=== PATIENT | female | born 1970 | race Caucasian/White ===

== ENCOUNTER 2017-12-26 07:38 | Emergency (ER) | payer OTHER ==
[~2017-12-26] VITALS: Ht 149.9 cm; Wt 90.0 kg
[~2017-12-26 07:38] MED LIST: CARI350T PO
[2017-12-26] MEDS ORDERED: SIMV40TA3 PO (08:08)
[2017-12-26] MEDS ORDERED: DIABETES (08:08)
[2017-12-26] MEDS ORDERED: DEXAMETHASONE 4 MG/ML, 1ML ONE (08:48)
[2017-12-26] MEDS ORDERED: SUMATRIPTAN 6MG/0.5ML SQ ONE ×2 (08:48→09:00)
[2017-12-26] MEDS ORDERED: KETOROLAC 30 MG/1 ML ONE (08:49)
[2017-12-26] MEDS ORDERED: METOCLOPRAMIDE 5 MG/ML, 2ML ONE (08:49)
[2017-12-26] MEDS ORDERED: DIPHENHYDRAMINE 50 MG/ML, 1ML ONE (08:49)
[2017-12-26] MEDS ORDERED: DIPHENHYDRAMINE 50 MG/ML, 1ML IVPush ONE (09:00)
[2017-12-26] MEDS ORDERED: SODIUM CHLORIDE 0.9% 1,000ML IVBOLUS ONE (09:00)
[2017-12-26] MEDS ORDERED: SODIUM CHLORIDE FLUSH 10ML SYR IVF ONE (09:00)
[2017-12-26] MEDS ORDERED: KETOROLAC 30 MG/1 ML IVPush ONE (09:00)
[2017-12-26] MEDS ORDERED: DEXAMETHASONE 4 MG/ML, 1ML IVPush ONE (09:00)
[2017-12-26] MEDS ORDERED: METOCLOPRAMIDE 5 MG/ML, 2ML IVPush ONE (09:00)
[2017-12-26] MEDS ORDERED: LISI-424 PO (10:36)
[2017-12-26] MEDS ORDERED: CARI350T14 PO (10:36)
[2017-12-26] MEDS ORDERED: FENO145T13 PO (10:36)
[2017-12-26 11:58] VITALS: BP 138/95
== END 2017-12-26 12:00 | disposition home or self-care (01) ==
LOC: ED 08:39
DX: R51 Headache (principal)
CPT/HCPCS: 70450; 96361; 96372; 96374; 96375; 99285; J1100; J1885; J2765; J3030; J7030

== ENCOUNTER → 2020-12-16 | Outpatient (CLI) | payer BC ==
[~2020-12-16] MED LIST changes: +CARI-389 PO; +DIABETES; +FENO145T19 PO; +LISI-606 PO; +SIMV40TA20 PO
== END | disposition home or self-care (01) ==
LOC: CFH 09:04
PROVIDERS: ATTEND Family Medicine
DX: N64.52 Nipple discharge (principal)
CPT/HCPCS: 76642; 77062; 77066; G0279

== ENCOUNTER 2021-06-15 20:05 | Emergency (ER) | payer BC ==
[~2021-06-15] VITALS: Ht 149.9 cm; Wt 70.9 kg
[2021-06-15] MEDS ORDERED: LIDOCAINE-MPF 1%, 5ML ONE (21:20)
[2021-06-15] MEDS ORDERED: BUPIVACAINE 0.25% ONE (21:20)
[2021-06-15] MEDS ORDERED: LIDOCAINE 1%, 10ML INFIL ONE (21:30)
[2021-06-15] MEDS ORDERED: BUPIVACAINE/PF 0.25% INFIL ONE (21:30)
[2021-06-15] MEDS ORDERED: PENICILLIN VK 500MG TABLET PO ONE (21:30)
[2021-06-15] MEDS ORDERED: PENICILLIN VK 500MG TABLET ONE (21:45)
[2021-06-15] MEDS ORDERED: ACETAMINOPHEN 500 MG TABLET ONE (21:55)
[2021-06-15] MEDS ORDERED: ACETAMINOPHEN 500 MG TABLET PO ONE (22:00)
[2021-06-15 22:03] VITALS: BP 154/86
== END 2021-06-15 22:05 | disposition home or self-care (01) ==
LOC: ED 21:38
DX: K08.9 Disorder of teeth and supporting structures, unspecified (principal); F17.210 Nicotine dependence, cigarettes, uncomplicated; I10 Essential (primary) hypertension; E11.9 Type 2 diabetes mellitus without complications; E78.00 Pure hypercholesterolemia, unspecified; Z90.710 Acquired absence of both cervix and uterus
CPT/HCPCS: 64400; 93005; 99284; 99406; J3490